=== PATIENT | female | born 1990 | race Caucasian/White ===

== ENCOUNTER 2017-06-13 09:28 | Emergency (ER) | payer OTHER ==
[~2017-06-13] VITALS: Ht 162.6 cm; Wt 53.0 kg
[~2017-06-13 09:28] MED LIST: HYDR-3240 PO; IBUP-1222 PO; PREN1TAB56 PO; k-dur
[2017-06-13] MEDS ORDERED: MORPHINE SULFATE 4 MG/ML, 1ML IVPush ONE (10:30)
[2017-06-13] MEDS ORDERED: morphine SULFATE 10 MG/ML, 1ML ONE (10:33)
[2017-06-13 11:00] LABS: HCG UR LOT HCG7030192
[2017-06-13 11:01] LABS: HEMATOCRIT 42.5 % (34.6-47.8); HEMOGLOBIN 14.8 g/dL (11.7-16.4); WHITE BLOOD COUNT 4.3 x10^3/uL (3.4-10)
[2017-06-13 11:12] LABS: ASPARTATE AMINO TRANSFERASE 51 U/L (15-37); BLOOD UREA NITROGEN 5 mg/dL (7-18)
[2017-06-13 11:42] LABS: HCG UR OBC PASS
[2017-06-13] MEDS ORDERED: KETOROLAC 30 MG/1 ML ONE (11:57)
[2017-06-13] MEDS ORDERED: HYDROcodone/APAP 5/325 TABLET ONE (11:57)
[2017-06-13] MEDS ORDERED: HYDROcodone/APAP 5/325 TABLET PO ONE (12:00)
[2017-06-13] MEDS ORDERED: KETOROLAC 30 MG/1 ML IVPush ONE (12:00)
[2017-06-13 12:51] VITALS: BP 118/80
== END 2017-06-13 13:08 | disposition home or self-care (01) ==
LOC: ED 11:20
DX: B34.9 Viral infection, unspecified (principal); F17.210 Nicotine dependence, cigarettes, uncomplicated
CPT/HCPCS: 36415; 71010; 80053; 81001; 81025; 83690; 85025; 87086; 93005; 96374; 96375; 99285; J1885